=== PATIENT | male | born 1945 | race Caucasian/White ===

== ENCOUNTER 2017-08-13 11:15 | Observation (INO) ==
--- NOTE | 2017-08-13 12:03 | Emergency Department Note ---
Disposition Clinical Impression: Atrial fibrillation with RVR Disposition: Admitted As Inpatient Condition: Fair Time of Disposition: 15:16 General Adult HPI - General Chief complaint: ED Shortness of Breath/Dyspnea Stated complaint: SUSAN,Weakness HX A-Fib Time Seen by Provider: 08/13/17 11:40 Source: family Mode of arrival: ambulatory Limitations: no limitations, age Nursing Notes Reviewed: Yes Vital Signs Reviewed: Yes - History of Present Illness HPI Narrative: 71-year-old male presents to the emergency department with shortness of breath and weakness and atrial fibrillation symptoms. Patient does have history of lung cancer recently stopped chemotherapy approximately 2-3 months ago. He recently had a ablation for atrial fibrillation done as well as a watchman procedure. He was recently discharged from the hospital approximately one week ago. Since then he said 2 or 3 days ago he has began to not feel well. He says having harder time breathing this normally occurs when he is an 8 fib. He was diagnosed with atrial fibrillation for signs of her gone into approximately one month ago. This time he is started on Coumadin and is on an amiodarone medication. He has tried all drips including Cardizem and other drips and those did not work celiac she had have an ablation done this was done again at [facility]. These other drips never worked for him. They are requesting that if he does need to be admitted that he goes to [facility]. Patient is not complaining of any pain at this time. Just not feeling well overall in general. Patient has had no fevers, chills, nausea, vomiting, chest pain, heart palpitations, back pain, neck pain, abdominal pain, change in bowel movement, pain with urination, pain or tearing on the arms or legs. Pain Scale: 8 - Related Data Home Medications Medication Instructions Recorded Confirmed Insulin Glargine [Lantus] 20 units SQ HS 06/19/17 08/13/17 [place]-3 Fatty Acids [Fish Oil] 300 mg PO BID 06/19/17 08/13/17 Simvastatin [Zocor] 40 mg PO HS 06/19/17 08/13/17 Albuterol Sulfate [Ventolin Hfa] 2 puff IH Q4H PRN 08/13/17 08/13/17 Amiodarone [Cordarone] 200 mg PO BID 08/13/17 08/13/17 Aspirin 81 mg PO DAILY 08/13/17 08/13/17 Azithromycin [Azithromycin 6-Tab 250 mg PO PER PKG DI 08/13/17 08/13/17 Pack] Cyanocobalamin (Vitamin B-12) 500 mcg PO DAILY 08/13/17 08/13/17 [Vitamin B-12] Folic Acid 1 mg PO DAILY 08/13/17 08/13/17 Guaifenesin [Mucinex] 600 mg PO Q6H 08/13/17 08/13/17 MethylPREDNISolone 4 mg PO PER PKG DI 08/13/17 08/13/17 [MethylPREDNISolone Dose Pack] Warfarin [Coumadin] 4 mg PO 1800 08/13/17 08/13/17 Allergies Allergy/AdvReac Type Severity Reaction Status Date / Time No Known Allergies Allergy Verified 06/19/17 08:47 Review of Systems: 10 point review of systems done and negative unless otherwise stated in the history of present illness. All systems ED: reviewed and negative except as stated. Review of Systems: As Per HPI Past Medical History - Past Medical History Attestation: Yes The following information was validated with the patient. Source: patient Medical history: Reports: cancer, diabetes, hypertension, myocardial infarction Psychiatric history: Reports: no psych history - Social History Smoking Status: Former smoker Smokeless Tobacco Status: No Alcohol use: Reports: none Drug use: Reports: none Physical Exam - General Limitations: age General appearance: alert - Head Head exam: atraumatic, normocephalic, normal inspection - Eye Eye exam: Present: normal appearance, PERRL, EOMI - ENT ENT exam: normal exam, normal oropharynx, mucous membranes moist - Neck Neck exam: Present: normal inspection, full ROM, trachea midline, other (hernia on rigth side of chest from post surgery from lobectomy) - Chest Chest inspection: Present: normal inspection, symmetric chest wall rise - Respiratory Respiratory exam: Present: normal lung sounds bilaterally - Cardiovascular Cardiovascular exam: Present: regular rate, normal rhythm, normal heart sounds - Abdominal Exam Abdominal exam: Present: soft, Non-Tender. Absent: tenderness, distention, guarding, rebound, rigidity - Extremities Exam Extremities exam: Present: normal inspection, full ROM. Absent: tenderness, pedal edema - Expanded Lower Extremity Exam Neurovascular/Tendon exam: Present: normal capillary refill. Absent: pulse deficit, motor deficit, sensory deficit, tendon deficit - Back Exam Back exam: Present: normal inspection, full ROM. Absent: tenderness, CVA tenderness (R), CVA tenderness (L) - Neurological Exam Neurological exam: Present: alert, oriented X3 - Skin Skin exam: Present: warm, dry, intact, normal color Course Course Narrative: 71-year-old male presents to the emergency department with generalized weakness.patient is in atrial fibrillation based on EKG done in triage.based on all of the patient's care being done at [facility] we will plan on transferring pt and we will speak with them to see what they want to be done here. - Reevaluation(s) Reevaluation #1: Patient does still seem in pain we do not have an accepting communications scientist at this time so I will order 100 g of fentanyl as well as 60 mg extended release diltiazem to see if this helps rate control him. Patient is okay with this plan. Time: 13:20 - Consultations Consultation #1: Spoke with [facility] transfer center who agreed to accept the patient to their cardiology service and are getting a bed. they woudl like a INR, and chemistry ordered with a CXR. Those were put in. And we are wainting on a bed to set up transfer. Time: 12:26 Consultation #2: Did get callback from [facility] and they said that we do have an accepting doctor of Dr. Yanes but said that there is no room available at this time. This probably will not happen until later in the evening or possibly tomorrow. At this time we decided that admission would be the most beneficial and a negative transfer from the floor. I spoke with Dr. Clark who agreed to admit the patient to their service. Patient is admitted in stable condition Time: 15:14 Vital Signs Temperature 97.7 F 08/13/17 11:17 Pulse Rate 107 08/13/17 11:17 Respiratory Rate 24 08/13/17 11:17 Blood Pressure 113/83 08/13/17 11:17 O2 Sat by Pulse Oximetry 99 08/13/17 11:17 Temperature 97.7 F 08/13/17 11:17 Pulse Rate 116 08/13/17 15:22 Respiratory Rate 20 08/13/17 15:22 Blood Pressure 98/78 08/13/17 15:22 O2 Sat by Pulse Oximetry 92 08/13/17 15:22 Oxygen Delivery Oxygen Delivery Room Air Medical Decision Making - MDM Narrative Medical decision making narrative: 71-year-old male presents to the emergency department with atrial fibrillation and he had an elevated PT INR as well as troponin 0.05 this is probably all due to stress from the A. fib. He also recently had a watchman procedure done. [facility] wanted the patient to come up there and there is an accepting physician of Dr. Yanes. The rooms are full sclerae mid to our hospital until room opens up at [facility]. We did give patient a long-acting diltiazem for rate control of his atrial fibrillation also gave him fentanyl for his pain. Patient has a history of lung cancer. Otherwise all other labs were normal chest x-ray did show the lobectomy otherwise no signs of pneumonia. This most likely is in atrial fib with RVR and he currently needs ablation or further treatment or workup from his communications scientist at [facility]. She is admitted in stable condition. Chest X-Ray 08/13/17 11:52 IMPRESSION: Stable moderate right pleural effusion and right lower lobe atelectasis, similar to the chest CT 06/19/2017. D/ / 08/13/2017 12:25:44 Nnamdi Marrero MD / Radha Renteria Interpreting Provider: Nnamdi Marrero MD - Medical Records Medical records reviewed: Yes I reviewed the patient's medical records. - Lab Data Lab results reviewed: Yes I reviewed the patient's lab results. Result diagrams: 08/13/17 12:43 Lab Results 08/13/17 08/13/17 Range/Units 12:43 12:43 PT 64.1 H* (9.4-12.1) Seconds INR 5.7 H* Sodium 137 (136-145) mEq/L Potassium 5.2 H (3.5-5.1) mEq/L Chloride 105 (98-107) mEq/L Carbon Dioxide 21 L (23-29) mEq/L BUN 50 H (8-23) mg/dL Creatinine 2.15 H (0.70-1.30) mg/dL Est GFR ( Amer) 37 L (> 60) Est GFR (Non-Af Amer) 30 L (> 60) BUN/Creatinine Ratio 23 (6-26) Glucose 155 H (70-105) mg/dL Calculated Osmolality 300 (280-300) Calcium 9.4 (8.6-10.3) mg/dL - Radiology Data Radiology results reviewed: Yes I reviewed the patient's radiology results. - EKG Data EKG #1 EKG attestation: Yes I reviewed and interpreted this EKG. EKG results narrative: EKG done at 1119 resume with and shows HO fibrillation with RVR at a rate of 113 , QRS 24, QTC 431 with a leftward axis is no acute ST changes no acute changes nor sent ischemia. There is no hypertrophy or heart strain over heart block. No symptoms of W/Brugada syndrome. No other signs of ischemia. This EKG is unchanged when compared with old one done 06/19/17. Attestation Statement - Attestation Attestation: I examined this patient and my medical decision-making was reviewed with the Resident Physician. I agree with the documented findings, disposition and treatment plan as described except to the extent set forth below. Pt evaluated by me, I directed MDM. I was involved in all of Dr. Sanderson's discussions with [facility]. Accepted but no beds available, admitting here while awaiting a bed to become available.
[2017-08-13 13:07] LABS: INR 5.7; Prothrombin Time 64.1 Seconds (9.4-12.1)
[2017-08-13 13:13] LABS: Calcium 9.4 mg/dL (8.6-10.3); Potassium 5.2 mEq/L (3.5-5.1)
[2017-08-13] MEDS ORDERED: *HR* FentaNYL (PF) 100 MCG/2 ML VIAL IVP ONE (13:16)
[2017-08-13] MEDS ORDERED: Diltiazem SR (12hr) 60 MG CAPSULE PO ONE (13:19)
[2017-08-13] MEDS ORDERED: Acetaminophen 325 MG TABLET PO PRN (16:59)
[2017-08-13] MEDS ORDERED: *HR* OxyCODONE Immed Rel 5 MG TABLET PO PRN (16:59)
[2017-08-13] MEDS ORDERED: *HR* HYDROcodone/Acet 5/325 mg TABLET PO PRN (16:59)
[2017-08-13] MEDS ORDERED: Naloxone 0.4 MG/ML INJ IVP PRN (16:59)
[2017-08-13] MEDS ORDERED: 0.9 % Sodium Chloride 1,000 ML IVC SCH (17:00)
--- NOTE | 2017-08-13 17:09 | Internal Med History&Physical ---
Date of Encounter: 08/13/17 Time of Encounter: 17:08 Assessment and Plan (1) Atrial fibrillation with RVR Status: Acute Noted to have atrial fibrillation with rapid ventricular response on EKG and telemetry monitoring. Received a dose of oral Cardizem 60 mg in the emergency room. Will use when necessary IV Cardizem 10 mg every 6 hours for appropriate heart rate control. Case has been discussed with cardiology at [facility] by emergency room physician, patient has an accepting physician and a bed assigned at this time. His troponin is noted to be 0.1, which is likely tachycardia induced. INR is noted to be 5.7, patient is on Coumadin at home. No active bleeding at this time, will not reverse INR now. Patient is otherwise medically stable for transfer to [facility] for cardiology evaluation and higher level of care. (2) Lung cancer Status: Chronic Qualifiers: Laterality: right Lung location: lower lobe of lung Qualified Code(s): C34.31 - Malignant neoplasm of lower lobe, right bronchus or lung (3) Coronary artery disease Status: Chronic Qualifiers: Coronary Disease-Associated Artery/Lesion type: [place] artery [place] vs. 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: with care home use Diabetes mellitus complication status: with unspecified complications Qualified Code(s): E11.8 - Type 2 diabetes mellitus with unspecified complications; Z79.4 - slab conditioner supervisor (current) use of insulin; Z79.4 - longterm (current) use of insulin; Z79.4 - slab conditioner supervisor (current) use of insulin; Z79.4 - longterm (current) use of insulin (5) Essential hypertension Status: Chronic (6) Acute kidney injury Status: Acute Serum creatinine in June 2017 noted to be 1.6, now at 2.15; likely dehydration, start gentle IV hydration; Internal Medicine - H&P: HPI Chief complaint: SOB Admitted From: Emergency Dept Plans for Post Hospital Care: Transfer Other History of present illness: Mr. Renner is a 71 year old male with history of right lung cancer, coronary artery disease, atrial fibrillation, was brought in by family with complaints of shortness of breath and not feeling well. Patient was recently discharged from [facility] about a week ago, after being treated for rapid atrial fibrillation. Patient receives all cardiac care at [facility], he generally does not respond to IV drips for heart rate controlled, like Cardizem or amiodarone and requires AV magdalena ablation. He also recently received watchman device- left atrial appendiceal closure device at [facility]. He currently reports exertional dyspnea and dry cough, malaise and fatigue. Denies chest pain, palpitations, dizziness or syncope. Patient requested for transfer to [facility] for further care. Past Med Surg Social Fam HX - Past Medical History Medical history: atrial fibrillation, cancer (LUNG), coronary artery disease, diabetes, hypertension, myocardial infarction Psychiatric history: no psych history - Past Surgical History Surgical History: other (ABLATION, right lung resection) - Social History Smoking Status: Former smoker Smokeless Tobacco Status: No Alcohol use: none Drug use: none Occupational status: retired Current living situation: Home, With Family Activity Level: Independent ambulation Recent Out of Country Travel Within the Last 8 Weeks: No Exposure or Possible Exposure to Illness During Travel: No Internal Medicine - H&P: Meds Insulin Glargine [Lantus] 20 units SQ HS 06/19/17 [History] [place]-3 Fatty Acids [Fish Oil] 300 mg PO BID 06/19/17 [History] Simvastatin [Zocor] 40 mg PO HS 06/19/17 [History] Albuterol Sulfate [Ventolin Hfa] 2 puff IH Q4H PRN 08/13/17 [History] Amiodarone [Cordarone] 200 mg PO BID 08/13/17 [History] Aspirin 81 mg PO DAILY 08/13/17 [History] Azithromycin [Azithromycin 6-Tab Pack] 250 mg PO PER PKG DI 08/13/17 [History] Cyanocobalamin (Vitamin B-12) [Vitamin B-12] 500 mcg PO DAILY 08/13/17 [History] Folic Acid 1 mg PO DAILY 08/13/17 [History] Guaifenesin [Mucinex] 600 mg PO Q6H 08/13/17 [History] MethylPREDNISolone [MethylPREDNISolone Dose Pack] 4 mg PO PER PKG DI 08/13/17 [ History] Warfarin [Coumadin] 4 mg PO 1800 08/13/17 [History] 3 Allergy/AdvReac Type Severity Reaction Status Date / Time No Known Allergies Allergy Verified 06/19/17 08:47 All Systems PM: A 10-system review of systems was performed and is negative for pertinent findings except as documented above in the HPI. - Constitutional Constitutional: chills, fatigue, malaise, no fever(s), no night sweats - EENT Eyes: no change in vision, no discharge, no pain, no photophobia Ears: no ear discharge, no ear pain, no tinnitus Nose, mouth and throat: no dysphagia, no nasal discharge, no neck pain, no sore throat - Cardiovascular Cardiovascular ROS IM: irregular heart rhythm, no chest pain, no diaphoresis, no dyspnea, no lightheadedness, no palpitations, no syncope - Respiratory Respiratory: cough, dyspnea, dyspnea on exertion - Gastrointestinal Gastrointestinal: no abdominal pain, no diarrhea, no hematemesis, no hematochezia, no melena, no nausea, no vomiting - Musculoskeletal Musculoskeletal ROS IM: no numbness, no tingling - Integumentary Integumentary IM: no rash, no unusual bruising - Neurological Neurological ROS: no confusion, no convulsions, no focal weakness, no numbness, no tingling, no tremor(s) - Hematologic/Lymphatic Hematologic/Lymphatic: no easy bruising - Constitutional Vitals: Temp Pulse Resp BP Pulse Ox 97.7 F 116 20 98/78 92 08/13/17 11:17 08/13/17 15:22 08/13/17 15:22 08/13/17 15:22 08/13/17 15:22 General appearance: Present: mild distress, A&O X 3, answers questions appropriately - Respiratory Respiratory exam: Present: CTAB (s/p right lower lung resection). Absent: accessory muscle use, rales, rhonchi, wheezes - Cardiovascular Cardiovascular exam: Present: irregular rhythm, +S1, +S2, tachycardia. Absent: diastolic murmur, gallop, rubs, systolic murmur - GI/Abdominal GI/Abdominal exam: Present: normal bowel sounds, soft, no peritoneal signs. Absent: distended, tenderness - Extremities Exam Extremities exam: Present: pedal edema (2+ tense pedal edema B/L), warm, radial pulses palpable and symmetrical. Absent: calf tenderness, cyanotic - Neurological Exam Neurological exam: Present: CN II-XII intact, oriented X3, no focal deficits. Absent: pronater drift, facial droop, speech deficit Internal Med - H&P Results - Labs CBC & Chem 7: 08/13/17 12:43
[2017-08-13 17:22] VITALS: BP 116/87
[2017-08-13] MEDS ORDERED: Insulin DETEMIR 100 UNIT/ML X5UNITS SQ SCH (21:00)
[2017-08-13] MEDS ORDERED: NON-FORMULARY MEDICATION 1 EACH EACH (Insulin Glargine [Lantus] 20 UNITS) SQ SCH (21:00)
[2017-08-13] MEDS ORDERED: *HR* Amiodarone 200 MG TABLET PO SCH (21:00)
[2017-08-14] MEDS ORDERED: Folic Acid 1 MG TABLET PO SCH (09:00)
[2017-08-14] MEDS ORDERED: methylPREDNISolone 4 MG TABLET PO SCH (09:00)
[2017-08-14] MEDS ORDERED: Aspirin 81 MG TAB.CHEW PO SCH (09:00)
[2017-08-14] MEDS ORDERED: Cyanocobalamin (B-12) 1,000 MCG TABLET PO SCH (09:00)
[2017-08-15] MEDS ORDERED: methylPREDNISolone 4 MG TABLET PO SCH (09:00)
[2017-08-16] MEDS ORDERED: methylPREDNISolone 4 MG TABLET PO SCH (09:00)
[2017-08-17] MEDS ORDERED: methylPREDNISolone 4 MG TABLET PO SCH (09:00)
--- NOTE | 2017-08-18 16:17 | Electrocardiograph Report ---
[place] [id number] Test Date: 2017-08-13 Pat Name: Steve Renner Department: 104 Room: 2A26 Gender: M Recooperer: YIN : 1945 Requested By: Jose M Sanderson Order Number: [id number] Reading MD: Dalia Linder Measurements Intervals [place] Rate: 113 P: TN: 0 QRS: -56 QRSD: 154 T: 92 QT: 364 QTc: 431 Interpretive Statements ATRIAL FIBRILLATION WITH RAPID VENTRICULAR RESPONSE INTRAVENTRICULAR CONDUCTION DELAY PROBABLY OLD INFERIOR ID WITH POSTERIOR EXTENSION Electronically Signed On 08-18-2017 15:39:28 EDT by Dalia Linder
== END 2017-08-13 18:26 | disposition short-term general hospital (02) ==
LOC: 2ANU 11:15 → EMEROO 11:15 → 2ANU 16:28
PROVIDERS: ADMIT Student in an Organized Health Care Education/Training Program; ATTEND Family Medicine